=== PATIENT | male | born 1955 | race Caucasian/White ===

== ENCOUNTER 2017-06-19 11:01 | Emergency (ER) | payer MEDICARE, SELFPAY ==
[2017-06-19 11:03] VITALS: BP 165/97; PULSE 75; RESP 18; TEMP 36.4; O2SAT 98; BMI 29.9
--- NOTE | 2017-06-19 11:48 | RAD_ITS ---
STUDY: X-RAY - LEFT HAND REASON FOR EXAM: Male, 61 years old. Laceration of the fifth digit. TECHNIQUE: 3 view(s) of the hand. COMPARISON: None. FINDINGS: Normal radiocarpal articulation. Normal distal radioulnar joint. Normal visualized carpal bones. Normal carpal articulations Normal carpometacarpal articulation of the thumb. Normal second through fifth carpometacarpal joints. Normal metacarpi. Normal metacarpophalangeal joint of the thumb. Normal interphalangeal joint of the thumb. Normal proximal and distal phalanges of the thumb. Normal metacarpophalangeal joints of the second through fifth fingers. Normal proximal and distal interphalangeal joints of the second through fifth fingers. Normal phalanges of the second through fifth fingers. Soft tissue swelling overlying the fourth and fifth digits. No bony abnormality is seen. No radiopaque foreign body is present. RAD/Hand Min 3 Views IMPRESSION: Soft tissue swelling overlying the fourth and fifth digits. No bony abnormality is seen. No radiopaque foreign body is present. Electronically Signed: Jameson Her MD at 12:27 EDT Tel [phone], Service support ,
--- NOTE | 2017-06-19 11:49 | ED.VISSUMM ---
- ER Visit Summary Date of Service: 06/19/17 Chief Complaint: Hand injury History of Present Illness: The patient is a 61 M who crushed his left little finger between a box and his truck bed. He sustained a laceration to the left little finger. Last tetanus immunization was 4 years ago. He is on aspirin and Plavix. [id number]. Physical Examination: Patient has a 4 cm spiral laceration to his left little finger. No laxity or deformity noted. Neurovascular intact distally. Test Results: X-rays pending. Emergency Department Course and Treatment: This is up-to-date. Will check x-rays prior to repair. X-rays negative. Digital block was performed. Patient achieved good anesthesia. His wound was irrigated copiously. Explored. No definite bony abnormality or tendon abnormality. Good strength and range of motion. Wound required a total of 13 simple interrupted sutures. There was some difficulty attaining hemostasis, but the sutures and some direct pressure seem to resolve the problem. Patient was placed in a dressing and splint. Keflex for prophylaxis. Follow-up with primary care. He was given wound care instructions and will follow-up in about 10 days for suture removal. Return sooner for any issues. Treatment Plan: As above Disposition: Discharged Impression: 1. Left small finger laceration 4 cm This note was generated with [employer] dictation software. It may contain incorrect words, spelling, and punctuation that were not noted in review of the chart prior to signing ED Disposition - Plan for ED Patient: Chief Complaint: Laceration Referrals: [facility] Doctor,Out of [NON-STAFF] -
[2017-06-19] MEDS: HYDROcodone Bitartrate/Apap 5/325 Tablet PO (13:17)
--- NOTE | 2017-06-19 14:48 | ED.DEP ---
ED Disposition - Plan for ED Patient: Chief Complaint: Laceration Instructions: ED Laceration Hand Prescriptions: Cephalexin [Keflex] 500 mg PO Q6 #12 cap Naproxen [Naprosyn] 500 mg PO BID PRN #20 tab Referrals: [facility] Doctor,Out of [NON-STAFF] -
[2017-06-19 15:18] VITALS: BP 140/91; PULSE 61; RESP 17; O2SAT 96
== END 2017-06-19 15:20 | disposition home or self-care (01) ==
LOC: ED 12:16
PROVIDERS: Emergency Provider Emergency Medicine
DX: S61.215A Laceration without foreign body of left ring finger without damage to nail, initial encounter (principal); W23.1XXA Caught, crushed, jammed, or pinched between stationary objects, initial encounter; Y93.9 Activity, unspecified; Y92.89 Other specified places as the place of occurrence of the external cause; Y99.9 Unspecified external cause status; E11.9 Type 2 diabetes mellitus without complications; I10 Essential (primary) hypertension; I25.2 Old myocardial infarction; Z79.82 Long term (current) use of aspirin; Z79.01 Long term (current) use of anticoagulants
CPT/HCPCS: 12002; 73130; 99283